=== PATIENT | female | born 1960 | race Caucasian/White ===

== ENCOUNTER → 2021-02-13 11:06 | Outpatient (CLI) | payer OTHER, SELFPAY ==
--- NOTE | ~2021-02-13 | XR_ITS ---
XR lumbar spine 2-3V DATE: 02/13/2021 11:30 INDICATION: Radiculopathy TECHNIQUE: Standing AP, lateral and coned lateral lumbosacral views COMPARISON: None FINDINGS: Mild levoscoliosis of the thoracolumbar spine. There is grade 1 anterolisthesis at L4-5 due to degenerative change at the apophyseal joints. There is mild to moderate degenerative disc disease at L1-2, L2-3, L3-4. No fracture or bone destruction. The lumbar pedicles are intact. The sacroiliac joints appear normal. IMPRESSION: Mild to moderate degenerative disc disease Degenerative change at the apophyseal joints with associated grade 1 anterolisthesis at L4-5 Reviewed, dictated and finalized at location B. IMPRESSION: Mild to moderate degenerative disc disease Degenerative change at the apophyseal joints with associated grade 1 anterolist hesis at L4-5
== END ==
DX: M54.16 Radiculopathy, lumbar region (principal); M51.36 Other intervertebral disc degeneration, lumbar region; M43.16 Spondylolisthesis, lumbar region
CPT/HCPCS: 72100